=== PATIENT | female | born 1950 | race Caucasian/White ===

== ENCOUNTER 2021-10-02 17:18 | Emergency (ER) | payer OTHER, SELFPAY ==
--- NOTE | ~2021-10-02 | XR_ITS ---
XR chest 2V DATE: 10/02/2021 18:20 INDICATION: Cardiac arrhythmia. Syncopal episode. Lethargy. TECHNIQUE: AP and lateral views COMPARISON: None FINDINGS: Status post sternotomy. Heart size is normal. There is aortic calcification and tortuosity. No hilar or mediastinal enlargement. No pulmonary infiltrate or consolidation, pleural effusion or pulmonary vascular congestion or pneumo thorax is evident. IMPRESSION: Status post sternotomy; no active cardiopulmonary disease Aortic atherosclerosis Reviewed, dictated and finalized at location A. [employer]
[2021-10-02 17:48] VITALS: BP 129/72; PULSE 111; RESP 15; TEMP 37.1; O2SAT 98
--- NOTE | 2021-10-02 17:55 | ECG_ITS ---
Measurements Intervals [place] Rate: 89 P: MT: 0 QRS: 41 QRSD: 116 T: 87 QT: 358 QTc: 436 Interpretive Statements ATRIAL FLUTTER/TACHYCARDIA INTRAVENTRICULAR CONDUCTION DELAY DELAYED PRECORDIAL R/S TRANSITION BORDERLINE ST-T WAVE ABNORMALITY- HIGH LATERAL LEADS BASELINE ARTIFACT- I, II, III, AVR ABNORMAL ECG Electronically Signed On 10-02-2021 20:54:41 [employer] by Justin Lopez D.O.
[2021-10-02 18:30] LABS: Basophils Absolute Auto 0.1 K/mm3 (0.0-0.1); Basophils Percent Auto 0.9 % (0.2-1.2); Eosinophils Absolute Auto 0.2 K/mm3 (0-0.3); Eosinophils Percent Auto 2.7 % (0-4.4); Hematocrit 34.3 % (37.0-47.0); Hemoglobin 10.6 g/dL (12.0-15.0); Immature Granulocyte Absolute 0.26 K/mm3 (0.00-0.031); Immature Granulocyte Percent A 3.1 % (0-0.5); Lymphocytes Absolute Auto 1.95 K/mm3 (0.9-3.2); Lymphocytes Percent Auto 22.9 % (18.3-44.2); Mean Corpuscular HGB Conc 30.9 g/dl (32-36); Mean Corpuscular Hemoglobin 31.2 pg (26-34); Mean Corpuscular Volume 100.9 fl (80-100); Mean Platelet Volume 8.8 fl (7.4-10.4); Monocytes Absolute Auto 0.7 K/mm3 (0.1-0.6); Neutrophils Absolute Auto 5.3 K/mm3 (1.3-6.7); Neutrophils Percent Auto 62.4 % (45.5-73.1); Platelet Count Result 333 k/mm3 (150-375); Red Cell Distribution Width 17.7 % (11.5-14.5); White Blood Count 8.5 K/mm3 (4.5-10.0)
[2021-10-02 18:38] LABS: INR 1.9
[2021-10-02 18:39] LABS: Alanine Aminotransferase 33 U/L (4-35); Albumin Level 4.1 g/dL (3.5-5.1); Alkaline Phosphatase 93 U/L (38-126); Anion Gap 4 mmol/L (8-16); Aspartate Amino Transferase 56 U/L (14-36); Bilirubin,Total 0.5 mg/dL (0.2-1.3); Blood Urea Nitrogen 25 mg/dL (7-17); Calcium 9.5 mg/dL (8.4-10.2); Carbon Dioxide 29 mmol/L (22-30); Chloride 105 mmol/L (98-107); Estimated Glomerular Filt Rate > 60; Glucose 121 mg/dL (65-110); Lipase 218 U/L (23-300); Partial Thromboplastin Time 30.7 SECONDS (22.3-36.8); Potassium 4.4 mmol/L (3.4-5.0); Sodium 138 mmol/L (137-145)
[2021-10-02 18:59] LABS: Troponin I 0.062 ng/mL (0.000-0.034)
--- NOTE | 2021-10-02 20:44 | ED.GENADULT ---
HPI - General Adult General Chief complaint: Arrhythmia/Palpitations Stated complaint: A flutter Time Seen by Provider: 10/02/21 20:16 History of Present Illness HPI narrative: Patient 71-year-old female who presents the emergency department with chief complaint of generalized weakness. Patient is currently a resident over at [facility] after she had a traumatic subdural and craniotomy the patient was discharged to rehab and has history of a valve replacement of which she is on chronic anticoagulation for the patient was cleared to start back on anticoagulation patient was doing good up until yesterday where she started feeling a little weaker today she was weak that she did want to get up and walk around patient denies chest pain denies shortness of breath denies headache denies change in level of consciousness. The patient denies any focal neurological deficit. The patient had an EKG done at the rehab facility which showed atrial flutter. This is new onset for the patient from prior documentation. Related Data Home Medications Medication Instructions Recorded Confirmed atorvastatin 10 mg PO DAILY 09/25/21 09/25/21 cholecalciferol (vitamin D3) 50 mcg PO DAILY 09/25/21 09/25/21 clopidogrel 75 mg PO DAILY 09/25/21 09/25/21 hydroxychloroquine 200 mg PO BID 09/25/21 09/25/21 metoprolol succinate 25 mg PO DAILY 09/25/21 09/25/21 sulfamethoxazole-trimethoprim 1 tablet PO DAILY 09/25/21 09/25/21 [Bactrim] tramadol 50 mg PO PRN PRN 09/25/21 09/25/21 warfarin 2 mg PO DAILY 09/25/21 09/25/21 Allergies Allergy/AdvReac Type Severity Reaction Status Date / Time ciprofloxacin [From Cipro] Allergy Unknown Verified 09/24/21 01:54 nitrofurantoin Allergy Unknown Verified 09/24/21 01:54 [From Macrodantin] Review of Systems Review of Systems: A 10 system review of systems was completed on the patient and is negative except for what is stated in the HPI. Nursing and ancillary documentation was reviewed. [facility] Past Medical History Medical History Ascending aortic aneurysm Cognitive deficits Hyperlipidemia Hypertension Ovarian cancer genetic susceptibility Recurrent UTI Rheumatoid arthritis Rheumatoid arthritis Surgical History Surgical History History of aortic valve replacement with metallic valve History of craniotomy Family History Family History Father Heart disease Other Acute myocardial infarction Social History Social History Smoking status: Never smoker Second hand tobacco smoke exposure: No Exam Narrative: GENERAL: Well-appearing, well-nourished, and in no acute distress. HEAD: Normocephalic, deformity of the left calvarium consistent with craniotomy. EYES: PERRLA and EOMI. ENT: Nares clear, no rhinorrhea or epistaxis. Mucous membranes moist. NECK: Supple. CHEST: Clear to auscultation. No respiratory distress. HEART: Irregular rate and rhythm. No murmur heard. Normal peripheral pulses. ABDOMEN: Soft, nontender, nondistended, normal active bowel sounds. EXTREMITIES: Normal range of motion. No edema. SKIN: Warm, dry, no rash. NEURO: No focal deficits. Alert and oriented x3. PSYCH: Normal mood and affect. Course Course Emergency Course: Atrial flutter with a rate of [address] elevation or ST depression Repeat EKG sinus rhythm rate of [address] elevation or ST depression Initial troponin was mildly elevated 3-hour troponin was slightly elevated 6-hour has been declining. The patient was cleared to be able to return back to the rehab facility. Vital Signs Vital signs: Vital Signs Temperature 37.1 C 10/02/21 17:48 Pulse Rate 111 H 10/02/21 17:48 Respiratory Rate 15 10/02/21 17:48 Blood Pressure 129/72 10/02/21 17:48 Pulse Oximetry
[2021-10-02] MEDS: traMADol HCL (*CRX) 50 MG TABLET PO (21:38)
[2021-10-02 21:52] LABS: SARS-CoV-2 RNA PCR Negative
[2021-10-02 22:09] LABS: Troponin I 0.077 ng/mL (0.000-0.034)
--- NOTE | 2021-10-02 22:39 | ECG_ITS ---
Measurements Intervals [place] Rate: 77 P: 45 CO: 242 QRS: 24 QRSD: 123 T: 99 QT: 400 QTc: 455 Interpretive Statements SINUS RHYTHM WITH FIRST DEGREE AV BLOCK INTRAVENTRICULAR CONDUCTION DELAY ST-T WAVE ABNORMALITY IN HIGH LATERAL LEADS- CONSIDER ISCHEMIA BASELINE ARTIFACT- II, III, AVR, AVF, V1, V3-V6 ABNORMAL ECG Electronically Signed On 10-03-2021 7:54:12 [employer] by Justin Lopez D.O.
[2021-10-03 00:16] LABS: Troponin I 0.067 ng/mL (0.000-0.034)
== END 2021-10-03 01:07 ==
PROVIDERS: Emergency Medicine; Emergency Provider Emergency Medicine; PCP Physician Assistant
DX: R53.1 Weakness (principal); I48.3 Typical atrial flutter; R79.89 Other specified abnormal findings of blood chemistry; Z20.822 Contact with and (suspected) exposure to COVID-19; E78.5 Hyperlipidemia, unspecified; I10 Essential (primary) hypertension; M06.9 Rheumatoid arthritis, unspecified; Z95.2 Presence of prosthetic heart valve; Z79.01 Long term (current) use of anticoagulants; R00.0 Tachycardia, unspecified; I45.9 Conduction disorder, unspecified; R94.31 Abnormal electrocardiogram [ECG] [EKG]; I70.0 Atherosclerosis of aorta
CPT/HCPCS: 36415; 71046; 80053; 83690; 84484; 85025; 85610; 85730; 93005; 99284; A9270; C9803; U0003; U0005